=== PATIENT | female | born 1975 | race Caucasian/White ===

== ENCOUNTER 2016-10-18 04:39 | Emergency (ER) | payer OTHER | END 2016-10-18 06:30 | disposition home or self-care (01) | LOC: ER 04:39 | DX: E86.0 Dehydration (principal); F41.9 Anxiety disorder, unspecified; I48.91 Unspecified atrial fibrillation; F17.210 Nicotine dependence, cigarettes, uncomplicated; Z79.899 Other long term (current) drug therapy; Z88.5 Allergy status to narcotic agent | CPT/HCPCS: 36415; 96361; 96374; 96375; G0480; J2765 ==